=== PATIENT | female | born 1990 | race Caucasian/White ===

== ENCOUNTER 2016-12-13 15:02 | Emergency (ER) | payer OTHER ==
[~2016-12-13] VITALS: Ht 160 cm; Wt 55.0 kg
[~2016-12-13 15:02] MED LIST: ESLI1TAB4 PO; ESZO2 PO; MONT10TA2 PO; ZOFR4TAB PO
[2016-12-13 15:12] VITALS: BP 104/63; PULSE 82; RESP 15; TEMP 97.9; O2SAT 100
[2016-12-13] MEDS ORDERED: ZOFR4TAB PO (15:31)
[2016-12-13] MEDS ORDERED: MONT4CHW2 CHEW (15:31)
[2016-12-13] MEDS ORDERED: ESZO3TAB4 PO (15:31)
[2016-12-13] MEDS ORDERED: ESLI1TAB4 PO (15:31)
[2016-12-13] MEDS ORDERED: TYLETAB34 PO (15:44)
--- NOTE | 2016-12-13 15:46 | PD ---
HPI Chief Complaint: Injury Time Seen by Provider: 15:43 Travel History International Travel<30 days: No Contact w/Intl Traveler<30days: No Traveled to known affect area: No History of Present Illness HPI Patient complains of left shoulder pain. It's been bothering her for 2-3 weeks. She aggravated it while lifting furniture. No direct trauma to it.The patient was seen and examined in the presence of the nurse. PFSH Past Medical History Hx Anticoagulant Therapy: Yes (ASPIRIN) ADD: Yes ADHD: Yes Asthma: No Anxiety: Yes Heart Rhythm Problems: No Cancer: Yes (PRECANCEROUS CELLS, CANCER NEGATIVE) Cardiovascular Problems: No High Cholesterol: No Chemotherapy: No Chest Pain: No Congestive Heart Failure: No COPD: No Cerebrovascular Accident: Yes (TIA) Diabetes: No Diminished Hearing: No Endocrine: No Hypertension: No Immune Disorder: No Implanted Vascular Access Dvce: No Respiratory: No Immunizations Current: Yes Seizures: Yes Sleep Apnea: No Thyroid Disease: No ?: Not LMP: 2 WEEKS AGO Past Surgical History Abdominal Surgery: Yes (GASTRIC BYPASS, BOWEL RESECTION, ABD HERNIA X2) Cholecystectomy: Yes Hysterectomy: No Social History Alcohol Use: Yes (OCCASIONALLY) Tobacco Use: No Substance Use: No Allergies-Medications (Allergen,Severity, Reaction): Coded Allergies: Keppra (Verified Allergy, Severe, Hives, 12/13/16) Patient experienced rash and hives on arms and neck. Tramadol (Verified Allergy, Severe, SOB, 12/13/16) Aspirin (Verified Adverse Reaction, Intermediate, TAKES BABY ASA, 12/13/16) Nonsteroidal Anti-Inflammatory Agts (Verified Adverse Reaction, Intermediate, GI upset, 12/13/16) Reported Meds & Prescriptions Reported Meds & Active Scripts Active Reported Zofran (Ondansetron HCl) 4 Mg Tab 4 Mg PO Q6HR PRN Singulair (Montelukast Sodium) 4 Mg Chew 4 Mg CHEW HS Lunesta (Eszopiclone) 3 Mg Tab 3 Mg PO HS PRN Aptiom (Eslicarbazepine) 800 Mg Tab 800 Mg PO DAILY Review of Systems General / Constitutional: No: Fever HENT: No: Headaches Cardiovascular: No: Chest Pain or Discomfort Physical Exam Narrative SKIN: Inspection shows no rash or ulcers. Palpation shows no induration or nodules. Psych: Normal mood and affect. Normal insight and judgment. NECK: Symmetrical appearance, midline trachea. No mass or crepitus. Thyroid without enlargement, tenderness, or mass. Shoulder: Left side shows good range of motion without deformity. She is tender in the rhomboid musculature Data Data Last Documented VS Vital Signs Date Time Temp Pulse Resp B/P Pulse Ox O2 Delivery O2 Flow Rate FiO2 12/13/16 15:12 97.9 82 15 104/63 100 MDM Medical Decision Making Medical Screen Exam Complete: Yes Emergency Medical Condition: Yes Medical Record Reviewed: Yes Differential Diagnosis Muscle strain, pinched nerve, disc herniation Narrative Course I have reviewed the patient's electronic medical record. 3 weeks into this and no improvements I suggested orthopedic follow-up She wanted pain medicines I wrote some Tylenol 3 Diagnosis Primary Impression: Strain of rhomboid muscle Qualified Code: S29.012A - Strain of rhomboid muscle, initial encounter Additional Instructions: The patient was advised to follow up with their physician and return if they worsen. The patient was warned about potential sedation for the medications they will receive on prescription. Med/Other Pt SpecificInfo: Prescription(s) given Scripts Acetaminophen-Codeine (Tylenol-Codeine #3)300-30 mg Tab1 Tab PO Q4H PRN (PAIN) # 20 TAB Ref 0 Prov:Lonnie Jones MD 12/13/16 Disposition: 01 DISCHARGE HOME Condition: Stable Lonnie Jones MD Dec 13, 2016 15:45
== END 2016-12-13 16:01 | disposition home or self-care (01) ==
LOC: PHEFT 15:02
DX: S29.012A Strain of muscle and tendon of back wall of thorax, initial encounter (principal); X50.0XXA Overexertion from strenuous movement or load, initial encounter; Y99.8 Other external cause status
CPT/HCPCS: 99283

== ENCOUNTER 2017-01-26 15:25 | Emergency (ER) | payer OTHER ==
[~2017-01-26] VITALS: Ht 160 cm; Wt 55.5 kg
[~2017-01-26 15:25] MED LIST changes: -ESZO2 PO; +ESZO3TAB4 PO; -MONT10TA2 PO; +MONT4CHW2 CHEW; +TYLETAB34 PO
[2017-01-26 15:35] VITALS: BP 113/79; PULSE 116; RESP 16; TEMP 97.7; O2SAT 100
[2017-01-26] MEDS ORDERED: SODIUM CHLOR 0.9% 1000 ML INJ 1,000 ML IV ONE (16:15)
[2017-01-26] MEDS ORDERED: SODIUM CHLORIDE 0.9% FLUSH 10 ML FLUSH IVF PRN (16:15)
--- NOTE | 2017-01-26 16:16 | PD ---
HPI Chief Complaint: Respiratory Symptoms Time Seen by Provider: 16:01 Travel History International Travel<30 days: No Contact w/Intl Traveler<30days: No Traveled to known affect area: No History of Present Illness HPI This 26-year-old female with a history of gastric bypass as well as iron deficiency anemia presents to emergency department with shortness of breath for gradually worsening over the past 2 days. She has been on oral iron supplementation which her housing assistant property manager is telling her isn't working and she is to start IV infusions. Patient states her shortness of breath gets worse anytime she ambulates. She denies any history of blood clots oral contraception her other hormone replacement therapy. She denies any chest pain abdominal pain shortness of breath. States she also does have some heavy periods from time to time but is not currently bleeding. Denies abdominal pain. PFSH Past Medical History Hx Anticoagulant Therapy: Yes (ASPIRIN) ADD: Yes ADHD: Yes Asthma: No Anxiety: Yes Heart Rhythm Problems: No Cancer: Yes (PRECANCEROUS CELLS, CANCER NEGATIVE) Cardiovascular Problems: No High Cholesterol: No Chemotherapy: No Chest Pain: No Congestive Heart Failure: No COPD: No Cerebrovascular Accident: Yes (TIA) Diabetes: No Diminished Hearing: No Endocrine: No Hypertension: No Immune Disorder: No Implanted Vascular Access Dvce: No Respiratory: No Immunizations Current: Yes Seizures: Yes Sleep Apnea: No Thyroid Disease: No ?: Not LMP: 01/01/17 Past Surgical History Abdominal Surgery: Yes (GASTRIC BYPASS, BOWEL RESECTION, ABD HERNIA X2) Cholecystectomy: Yes Hysterectomy: No Social History Alcohol Use: Yes (OCCASIONALLY) Tobacco Use: No Substance Use: No Allergies-Medications (Allergen,Severity, Reaction): Coded Allergies: Keppra (Verified Allergy, Severe, Hives, 01/26/17) Patient experienced rash and hives on arms and neck. Tramadol (Verified Allergy, Severe, SOB, 01/26/17) Aspirin (Verified Adverse Reaction, Intermediate, TAKES BABY ASA, 01/26/17) Nonsteroidal Anti-Inflammatory Agts (Verified Adverse Reaction, Intermediate, GI upset, 01/26/17) Reported Meds & Prescriptions Reported Meds & Active Scripts Active Reported Lunesta (Eszopiclone) 3 Mg Tab 3 Mg PO HS PRN Aptiom (Eslicarbazepine) 800 Mg Tab 800 Mg PO DAILY Review of Systems Except as stated in HPI: all other systems reviewed are Neg Physical Exam Narrative GENERAL: Well-developed, mildly anxious, well-nourished. SKIN: Focused skin assessment warm/dry. HEAD: Atraumatic. Normocephalic. EYES: Pupils equal and round. No scleral icterus. No injection or drainage. ENT: No nasal bleeding or discharge. Mucous membranes pink and moist. NECK: Trachea midline. No JVD. CARDIOVASCULAR: Regular rhythm with mild tachycardia. No murmur appreciated. RESPIRATORY: No accessory muscle use. Clear to auscultation. Breath sounds equal bilaterally. No increased work of breathing. GASTROINTESTINAL: Abdomen soft, non-tender, nondistended. Hepatic and splenic margins not palpable. MUSCULOSKELETAL: No obvious deformities. No clubbing. No cyanosis. No edema. NEUROLOGICAL: Awake and alert. No obvious cranial nerve deficits. Motor grossly within normal limits. Normal speech. PSYCHIATRIC: Appropriate mood and affect; insight and judgment normal. Data Data Last Documented VS Vital Signs Date Time Temp Pulse Resp B/P Pulse Ox O2 Delivery O2 Flow Rate FiO2 01/26/17 19:12 89 18 98 01/26/17 19:02 106/62 Room Air 01/26/17 18:16 2 01/26/17 15:35 97.7 Orders B-Type Natriuretic Peptide (01/26/17 16:08) Complete Blood Count With Diff (01/26/17 16:08) Comprehensive Metabolic Panel (01/26/17 16:08) D-Dimer (01/26/17 16:08) Magnesium (Mg) (01/26/17 16:08) Prothrombin Time / Inr (Pt) (01/26/17 16:08) Act Partial Throm Time (Ptt) (01/26/17 16:08) Troponin I (01/26/17 16:08) Ecg Monitoring (01/26/17 16:08) Bilateral Bp Monitoring (01/26/17 16:08) Iv Access Insert/Monitor (01/26/17 16:08) Oximetry (01/26/17 16:08) Oxygen Administration (01/26/17 16:08) Sodium Chloride 0.9% Flush (Ns Flush) (01/26/17 16:15) Chest, Pa & Lat (01/26/17 16:08) Sodium Chlor 0.9% 1000 Ml Inj (Ns 1000 M (01/26/17 16:15) Ct Pulmonary Angiogram (01/26/17 ) Ed Urine Pregnancytest Poc (01/26/17 17:37) Iohexol 350 Inj (Omnipaque 350 Inj) (01/26/17 18:34) Labs Laboratory Tests Test 01/26/17 16:10 White Blood Count 7.7 TH/MM3 Red Blood Count 4.43 MIL/MM3 Hemoglobin 12.9 GM/DL Hematocrit 37.6 % Mean Corpuscular Volume 84.9 FL Mean Corpuscular Hemoglobin 29.2 PG Mean Corpuscular Hemoglobin 34.4 % Concent Red Cell Distribution Width 13.1 % Platelet Count 286 TH/MM3 Mean Platelet Volume 8.5 FL Neutrophils (%) (Auto) 54.2 % Lymphocytes (%) (Auto) 31.4 % Monocytes (%) (Auto) 6.4 % Eosinophils (%) (Auto) 4.3 % Basophils (%) (Auto) 3.7 % Neutrophils # (Auto) 4.2 TH/MM3 Lymphocytes # (Auto) 2.4 TH/MM3 Monocytes # (Auto) 0.5 TH/MM3 Eosinophils # (Auto) 0.3 TH/MM3 Basophils # (Auto) 0.3 TH/MM3 CBC Comment DIFF FINAL Differential Comment Prothrombin Time 10.7 SEC Prothromb Time International 1.0 RATIO Ratio Activated Partial 24.0 SEC Thromboplast Time D-Dimer Quantitative (PE/DVT) LESS THAN 0.19 MG/L FEU Sodium Level 143 MEQ/L Potassium Level 3.5 MEQ/L Chloride Level 107 MEQ/L Carbon Dioxide Level 24.9 MEQ/L Anion Gap 11 MEQ/L Blood Urea Nitrogen 10 MG/DL Creatinine 0.90 MG/DL Estimat Glomerular Filtration 76 ML/MIN Rate Random Glucose 68 MG/DL Calcium Level 8.8 MG/DL Magnesium Level 2.1 MG/DL Total Bilirubin 1.0 MG/DL Aspartate Amino Transf 24 U/L (AST/SGOT) Alanine Aminotransferase 26 U/L (ALT/SGPT) Alkaline Phosphatase 61 U/L Troponin I LESS THAN 0.02 NG/ML B-Type Natriuretic Peptide 19 PG/ML Total Protein 7.5 GM/DL Albumin 4.2 GM/DL MDM Medical Decision Making Medical Screen Exam Complete: Yes Emergency Medical Condition: Yes Interpretation(s) EKG shows normal sinus rhythm normal axis and normal R-wave progression. No concerning ST-T changes. Intervals within normal limits. This normal EKG. Differential Diagnosis PE, pneumonia, anemia, CHF unlikely, anxiety is a possibility. Narrative Course Patient mildly tachycardic on arrival. Initial workup shows a normal H&H with normocytic indices. BMP is negative, EKG is reassuring. D-dimer is negative. Patient reassessed and is feeling somewhat better but becomes tachycardic which starts talking. For this reason PE was reintroduced as a differential diagnosis and discussed with the patient that with a negative d-dimer she has a very low likelihood of having a PE however I have nothing to explain her shortness of breath nor her tachycardia at this time for safety sake she can consider having a CT PE protocol which she agrees to. CT PE protocol is negative. Patient was reassessed and reassured. Discussed she needs to follow up with her primary care provider as well as her housing assistant property manager for further workup. At this point she is stable for discharge. Diagnosis Primary Impression: SOB (shortness of breath) Additional Instructions: Follow-up with her housing assistant property manager as scheduled, call your primary care provider in the morning. Disposition: 01 DISCHARGE HOME Condition: Stable Olaf Mcknight MD Jan 26, 2017 16:15
[2017-01-26 16:19] VITALS: O2SAT 97
[2017-01-26 16:28] LABS: AUTOMATED NEUTROPHIL # 4.2 TH/MM3 (1.8-7.7); BASOPHIL # 0.3 TH/MM3 (0-0.2); BASOPHIL % 3.7 % (0.0-2.0); EOSINOPHIL # 0.3 TH/MM3 (0-0.4); EOSINOPHIL % 4.3 % (0.0-4.0); HEMATOCRIT 37.6 % (35.0-46.0); HEMO FLAGS DIFF FINAL; LYMPH % 31.4 % (9.0-44.0); LYMPHOCYTE # 2.4 TH/MM3 (1.0-4.8); MEAN CELL VOLUME 84.9 FL (80.0-100.0); MEAN CORPUSCULAR HEMOGLOBIN 29.2 PG (27.0-34.0); MEAN CORPUSCULAR HGB CONC 34.4 % (32.0-36.0); MONO % 6.4 % (0.0-8.0); NEUT % 54.2 % (16.0-70.0); PLATELET COUNT 286 TH/MM3 (150-450); RED BLOOD COUNT 4.43 MIL/MM3 (4.00-5.30); RED CELL DISTRIBUTION WIDTH 13.1 % (11.6-17.2); WHITE BLOOD COUNT 7.7 TH/MM3 (4.0-11.0)
[2017-01-26 16:35] LABS: CHLORIDE 107 MEQ/L (98-107); POTASSIUM 3.5 MEQ/L (3.5-5.1); SODIUM (NA) 143 MEQ/L (136-145)
[2017-01-26 16:39] LABS: ANION GAP 11 MEQ/L (5-15); BICARBONATE 24.9 MEQ/L (21.0-32.0); BLOOD UREA NITROGEN 10 MG/DL (7-18); MAGNESIUM 2.1 MG/DL (1.5-2.5)
[2017-01-26 16:41] VITALS: BP_SYST 104; BP_SYST 107; BP_DIAS 63; BP_DIAS 66; PULSE 68; RESP 20
--- NOTE | 2017-01-26 16:41 | RADHPO ---
EXAM DATE/TIME: 01/26/2017 16:23 [facility] COMPARISON: No previous studies available for comparison. INDICATIONS : Shortness of breath and chest pain. MEDICAL HISTORY : None. SURGICAL HISTORY : None. ENCOUNTER: Initial ACUITY: 2 days PAIN SCORE: 3/10 LOCATION: Right upper chest FINDINGS: The lungs are clear without infiltrate, nodule, or mass. There is no appreciable pleural effusion fo r technique. Heart and mediastinum are unremarkable. There is evidence for prior cholecystectomy. IMPRESSION: No acute cardiopulmonary disease. Gurdeep Jones MD on January 26, 2017 at 16:39 Board Certified Radiologist. This report was verified electronically.
[2017-01-26 16:42] LABS: ALT (GPT) 26 U/L (10-53); AST (GOT) 24 U/L (15-37); GLOMERULAR FILTRATION RATE 76 ML/MIN (>89)
[2017-01-26 16:43] LABS: PROTHROMBIN TIME - PATIENT 10.7 SEC (9.8-11.6)
[2017-01-26 16:45] LABS: ALKALINE PHOSPHATASE 61 U/L (45-117)
[2017-01-26 17:25] VITALS: BP 109/59; PULSE 89; RESP 20; O2SAT 96
[2017-01-26 18:16] VITALS: BP 102/58; PULSE 79; RESP 20; O2SAT 100
[2017-01-26] MEDS ORDERED: IOHEXOL 350 MG/ML 10 ML VIAL (for RAD DIAG) IV ONE (18:34)
--- NOTE | 2017-01-26 18:47 | RADHPO ---
EXAM DATE/TIME: 01/26/2017 18:19 [facility] COMPARISON: CHEST PA & LAT, January 26, 2017, 16:23. INDICATIONS : Short of breath and chest tightness. Evaluate for pulmonary embolism. IV CONTRAST: 70 cc Omnipaque 350 (iohexol) IV RADIATION DOSE: 6.93 CTDIvol (mGy) MEDICAL HISTORY : Cerebrovascular disease. Seizures. Anticoagulant therapy. SURGICAL HISTORY : Gastric bypass. Cholecystectomy.Bowel resection. hernia repair. ENCOUNTER: Initial ACUITY: 2 days PAIN SCALE: 2/10 LOCATION: Bilateral chest TECHNIQUE: Volumetric scanning of the chest was performed using a pulmonary embolism protocol MIP images were re constructed. Using automated exposure control and adjustment of the mA and/or kV according to patien t size, radiation dose was kept as low as reasonably achievable to obtain optimal diagnostic quality images. FINDINGS: PULMONARY ARTERIES: No filling defects are seen in the pulmonary arteries through the segmental level. LUNGS: There is no consolidation or pneumothorax . No concerning pulmonary nodule is visualized. PLEURAE: There is no pleural thickening or pleural effusion. MEDIASTINUM: There is good visualization of the great vessels of the middle mediastinum. No evidence of mediastin al or hilar adenopathy/mass. MUSCULOSKELETAL: Within normal limits for patient age. MISCELLANEOUS: The visualized upper abdominal organs demonstrate no acute abnormality. CONCLUSION: No pulmonary embolus or other acute abnormality. Jay Jay Staples MD on January 26, 2017 at 18:44 Board Certified Radiologist. This report was verified electronically.
[2017-01-26 19:02] VITALS: BP 106/62; PULSE 90; RESP 18; O2SAT 98
--- NOTE | 2017-01-27 06:57 | EKG ---
Date Performed: 01/26/2017 Time Performed: 15:43:50 PTAGE: 26 years EKG: Sinus rhythm Short [place] interval Inferior T wave changes may be normal for age Borderline ECG COMPARED TO PRIOR JOSH CTROCARDIOGRAM, Precordial T wave changes are less marked. PREVIOUS TRACING : 09/17/2015 21.21 DOCTOR: Albert Goode Interpretating Date/Time 01/27/2017 06:56:58
== END 2017-01-26 19:13 | disposition home or self-care (01) ==
LOC: PHED 15:25
DX: R06.02 Shortness of breath (principal); D50.9 Iron deficiency anemia, unspecified; R00.0 Tachycardia, unspecified; Z79.82 Long term (current) use of aspirin; Z86.73 Personal history of transient ischemic attack (TIA), and cerebral infarction without residual deficits; Z98.84 Bariatric surgery status
CPT/HCPCS: 71020; 71275; 80053; 83735; 83880; 84484; 84703; 85025; 85379; 85610; 85730; 93005; 96360; 99284; J7030; Q9967

== ENCOUNTER 2017-05-30 15:03 | Emergency (ER) | payer OTHER ==
[~2017-05-30] VITALS: Ht 160 cm; Wt 62.1 kg
[~2017-05-30 15:03] MED LIST changes: -MONT4CHW2 CHEW; -TYLETAB34 PO; -ZOFR4TAB PO
[2017-05-30 15:14] VITALS: BP 118/59; PULSE 90; RESP 16; TEMP 98.2; O2SAT 99
[2017-05-30] MEDS ORDERED: FLUT1INH INH (15:28)
[2017-05-30] MEDS ORDERED: MONT10TA2 PO (15:28)
[2017-05-30] MEDS ORDERED: VENTAER INH (15:28)
[2017-05-30] MEDS ORDERED: CYCL1TAB29 PO (15:44)
[2017-05-30] MEDS ORDERED: KETOROLAC TROMETHAMINE 60 MG/2 ML (IM) VIAL IM ONE (15:45)
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
== END 2017-05-30 16:06 | disposition home or self-care (01) ==
LOC: PHEFT 15:03
DX: S16.1XXA Strain of muscle, fascia and tendon at neck level, initial encounter (principal); V49.9XXA Car occupant (driver) (passenger) injured in unspecified traffic accident, initial encounter
CPT/HCPCS: 96372; 99284; J1885

== ENCOUNTER 2017-09-24 13:33 | Emergency (ER) | payer OTHER ==
[~2017-09-24] VITALS: Ht 160 cm; Wt 62.9 kg
[~2017-09-24 13:33] MED LIST changes: +CYCL10TA PO; -ESZO3TAB4 PO; +FLUT1INH INH; +MONT10TA2 PO; +VENTAER INH
[2017-09-24 13:40] VITALS: BP 127/71; PULSE 85; RESP 18; TEMP 97.9; O2SAT 100
[2017-09-24] MEDS ORDERED: DEXAMETHASONE SOD PHOS 20 MG/5 ML VIAL IM ONE (14:15)
[2017-09-24] MEDS ORDERED: CYCLOBENZAPRINE HCL 10 MG TAB PO ONE (14:15)
--- NOTE | 2017-09-24 14:15 | PD ---
HPI Chief Complaint: Back/ Neck Pain or Injury Time Seen by Provider: 13:57 Travel History International Travel<30 days: No Contact w/Intl Traveler<30days: No Traveled to known affect area: No History of Present Illness HPI Patient's complaining of right low back patient is a burning like sensation radiating down her right lower extremity. Patient reports a history of bulging disc noted on MRI done approximately one year ago. Patient states last night she carried an 80 pound item down the stairs causing the pain. Patient denies any trauma, loss change in bowel or bladder, , fevers, IV drug abuse, numbness or tingling anywhere, weakness, or abdominal pain. Patient states she took Motrin for this with minimal relief of symptoms. Pain is worse with certain positions and walking. PFSH Past Medical History Hx Anticoagulant Therapy: Yes (ASPIRIN) ADD: Yes ADHD: Yes Asthma: No Anxiety: Yes Heart Rhythm Problems: No Cancer: Yes (PRECANCEROUS CELLS, CANCER NEGATIVE) Cardiovascular Problems: No High Cholesterol: No Chemotherapy: No Chest Pain: No Congestive Heart Failure: No COPD: No Cerebrovascular Accident: Yes (TIA) Diabetes: No Diminished Hearing: No Endocrine: No Hypertension: No Immune Disorder: No Implanted Vascular Access Dvce: No Respiratory: No Immunizations Current: Yes Seizures: Yes Sleep Apnea: No Thyroid Disease: No ?: Not Past Surgical History Abdominal Surgery: Yes (GASTRIC BYPASS, BOWEL RESECTION, ABD HERNIA X2) Cholecystectomy: Yes Hysterectomy: No Social History Alcohol Use: Yes (OCCASIONALLY) Tobacco Use: No (NEVER) Substance Use: No Allergies-Medications (Allergen,Severity, Reaction): Coded Allergies: levetiracetam (Unverified Allergy, Severe, Hives, 09/24/17) Patient experienced rash and hives on arms and neck. tramadol (Unverified Allergy, Severe, SOB, 09/24/17) aspirin (Unverified Adverse Reaction, Intermediate, TAKES BABY ASA, ) diclofenac (Unverified Adverse Reaction, Intermediate, GI upset, 09/24/17) etodolac (Unverified Adverse Reaction, Intermediate, GI upset, 09/24/17) flurbiprofen (Unverified Adverse Reaction, Intermediate, GI upset, ) ibuprofen (Unverified Adverse Reaction, Intermediate, GI upset, 09/24/17) indomethacin (Unverified Adverse Reaction, Intermediate, GI upset, ) ketoprofen (Unverified Adverse Reaction, Intermediate, GI upset, 09/24/17) ketorolac (Unverified Adverse Reaction, Intermediate, GI upset, 09/24/17) naproxen (Unverified Adverse Reaction, Intermediate, GI upset, 09/24/17) oxaprozin (Unverified Adverse Reaction, Intermediate, GI upset, 09/24/17) Reported Meds & Prescriptions Reported Meds & Active Scripts Active Flexeril (Cyclobenzaprine HCl) 10 Mg Tab 10 Mg PO Q8HR PRN Medrol Dosepak (Methylprednisolone) 4 Mg Dspk 4 Mg PO DIRECTED Per Pharmacist direction Reported Ventolin Hfa 18 GM Inh (Albuterol Sulfate) 90 Mcg/Act Aer 1 Puff INH Q4H PRN Breo Ellipta Inh (Fluticasone/Vilanterol) 100-25 Mcg/Act Inh 1 Puff INH DAILY Use daily at the same time. Aptiom (Eslicarbazepine) 800 Mg Tab 800 Mg PO DAILY Review of Systems Except as stated in HPI: all other systems reviewed are Neg Physical Exam Narrative GENERAL: Well-developed, well nourished, in no acute distress, and non-ill appearing. SKIN: Focused skin assessment warm and dry. HEAD: Atraumatic. Normocephalic. EYES: Pupils equal and round. EOMI. No scleral icterus. No injection or drainage. ENT: No nasal bleeding or discharge. Mucous membranes pink and moist. NECK: Trachea midline. Supple. No nuclear rigidity. CARDIOVASCULAR: Regular rate and rhythm. No murmur appreciated. RESPIRATORY: No accessory muscle use. No respiratory distress. GASTROINTESTINAL: Abdomen soft, non-tender, nondistended, and no guarding. Hepatic and splenic margins not palpable. No pulsatile mass. MUSCULOSKELETAL: No obvious deformities. No clubbing. No cyanosis. No edema. Full range of motion. No tenderness crepitus over midline lumbar spine. Patient reports tenderness near right SI joint. Straight leg test negative bilaterally. NEUROLOGICAL: Awake and alert. No obvious cranial nerve deficits. Motor grossly within normal limits. Normal speech. PSYCHIATRIC: Appropriate mood and affect; insight and judgment normal. Data Data Last Documented VS Vital Signs Date Time Temp Pulse Resp B/P (MAP) Pulse Ox O2 Delivery O2 Flow Rate FiO2 09/24/17 14:31 09/24/17 13:40 97.9 85 18 100 Room Air Orders Orders Ed Discharge Order (09/24/17 14:10) Dexamethasone Inj (Decadron Inj) (09/24/17 14:15) Cyclobenzaprine (Flexeril) (09/24/17 14:15) MDM Medical Decision Making Medical Screen Exam Complete: Yes Emergency Medical Condition: Yes Differential Diagnosis Fracture, strain, contusion, sciatica Narrative Course The patient presented complaining of back pain with radiation down leg. There was no history of recent fall or trauma. There was no evidence to support genitourinary etiology. There is also no evidence to suggest vascular pathology such as AAA dissection. No fevers or other evidence to suspect infectious processes, abscess, osteomyelitis etc. The patients neurological exam is normal with normal motor and sensory. There is no saddle paresthesias reported and no bowel or bladder incontinence or retention. I suspect the pain is mechanical in nature with sciatica. Clinical suspicion, plan of care and management was discussed with the patient. The patient was instructed to follow up with their health care provider. The patient was also instructed to return if the pain worsened, changed, or developed weakness or bowel or bladder trouble. The patient agreed with plan. Patient in no obvious distress upon re-evaluation. Patient was asked if they wanted to speak to my attending, which the patient did not wish to do at this time. Any questions/concerns in reference to patient diagnosis/condition discussed and clarified prior to patient's discharge. Reinforced sheer importance of close follow up with patient's primary physician or primary care clinic. Instructed patient to return to ED immediately, if symptoms return/ worsen. Patient showed understanding of above instructions. Further instructions and recommendations were detailed in discharge paperwork. Patient ambulated without difficulty out of ED at discharge. Diagnosis Primary Impression: Low back pain Qualified Codes: M54.41 - Lumbago with sciatica, right side Referrals: Orly Richardson MD Patient Instructions: Acute Low Back Pain (ED), General Instructions, Sciatica (ED) Additional Instructions: Follow-up with your primary care physician and/or orthopedic in 3-5 days for reevaluation. Take all medication as prescribed. Return to the emergency department if symptoms get worse. Med/Other Pt SpecificInfo: Prescription(s) given Scripts Cyclobenzaprine (Flexeril) 10 Mg Tab 10 MG PO Q8HR Y for MUSCLE PAIN, #15 TAB 0 Refills Prov: Lissa Jimenes DO 09/24/17 Methylprednisolone Dosepak (Medrol Dosepak) 4 Mg Dspk 4 MG PO DIRECTED, #1 DSPK 0 Refills Per Pharmacist direction Prov: Jimenes,Lissa POE 09/24/17 Disposition: 01 DISCHARGE HOME Condition: Stable Seven Alanis Sep 24, 2017 14:15
[2017-09-24] MEDS ORDERED: MEDR4PAK PO (14:16)
[2017-09-24] MEDS ORDERED: CYCL10TA PO (14:16)
== END 2017-09-24 14:36 | disposition home or self-care (01) ==
LOC: PHEFT 13:33
DX: M54.41 Lumbago with sciatica, right side (principal)
CPT/HCPCS: 96372; 99284; J1100